=== PATIENT | male | born 1995 | race Caucasian/White ===

== ENCOUNTER → 2021-11-18 08:10 | Outpatient (BNVA) | payer BC, SELFPAY | PROVIDERS: Visit Provider Nurse Practitioner Family | DX: S49.91XA Unspecified injury of right shoulder and upper arm, initial encounter (principal); X58.XXXA Exposure to other specified factors, initial encounter | CPT/HCPCS: 73030 ==

== ENCOUNTER 2022-02-27 07:49 | Outpatient (CLI) | payer BC, SELFPAY ==
--- NOTE | 2022-02-27 09:30 | MR_ITS ---
WS: [id number] MRI RIGHT SHOULDER HISTORY: Right shoulder injury COMPARISON: Radiographs 11/18/2021 TECHNIQUE: Multiplanar sequences of the shoulder joint are submitted. Marrow edema in the distal clavicle. There is also edema in the acromion. Fluid along the AC ligament . Gap in the AC ligament filled with fluid. No elevation of the clavicle. No significant amount of fl uid in the subacromial or subdeltoid bursa. No subacromial impingement. No os acromion. Biceps tendon remains in the bicipital groove. No rotator cuff muscle atrophy or edema. No tendon tears are appreciated. Patient was unable to remai n still for this examination. Questionable anterior superior labral tear. No glenoid fracture. No mar row edema in the humeral head or Hill-Sachs deformity. MR/MR shoulder RT wo con* [id number] IMPRESSION: 1. AC ligament tear with no dislocation of the clavicle. 2. Edema in the distal clavicle and acromion. 3. No rotator cuff tear. 4. Anterior superior labral tear is suspected. Patient had a difficult time re maining still for this examination but there is increased signal within the ant erior superior labrum. 5. No glenoid fracture. No Hill-Sachs deformity.
== END 2022-02-27 07:50 | disposition home or self-care (01) ==
PROVIDERS: Visit Provider Nurse Practitioner Family
DX: S43.51XA Sprain of right acromioclavicular joint, initial encounter; X58.XXXA Exposure to other specified factors, initial encounter
CPT/HCPCS: 73221